=== PATIENT | female | born 1935 | race Caucasian/White ===

== ENCOUNTER → 2017-05-30 | Outpatient (CLI) | payer OTHER, BC ==
[~2017-05-30] MED LIST: IOPAMIDOL (ISOVUE-300) 100 ML BTL ONE
== END ==
LOC: CIMAGING 09:22
PROVIDERS: ATTEND Physician Assistant
DX: K74.69 Other cirrhosis of liver (principal); M48.061 Spinal stenosis, lumbar region without neurogenic claudication
CPT/HCPCS: 74178; Q9967

== ENCOUNTER → 2017-11-06 | Outpatient (CLI) | payer OTHER, BC | LOC: FCPNEURO 20:00 | PROVIDERS: ATTEND Internal Medicine Sleep Medicine | DX: G47.33 Obstructive sleep apnea (adult) (pediatric) (principal) ==

== ENCOUNTER 2018-04-23 15:08 | Emergency (ER) | payer OTHER, BC ==
[2018-04-23] MEDS ORDERED: NS 1,000 ML IV ONE (15:45)
[2018-04-23] MEDS ORDERED: ONDANSETRON 4 MG/2 ML VIAL IVP ONE ×2 (15:45→17:56)
--- NOTE | 2018-04-23 15:47 | EDPHY ---
H & P Stated Complaint: abdominal pain,nausea,weakness for 1 week Time Seen by Provider: 04/23/18 15:11 HPI/ROS: Chief Complaint: Nausea, abdominal pain HPI: 82-year-old woman with a history of chronic abdominal pain and cirrhosis is presenting with 1 week of nausea, decreased oral intake and abdominal pain. 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 She has had decreased oral intake for the last 2 days. She was recently discharged from [facility] on the 26 of March with a small-bowel obstruction which was treated medically. She has not had any vomiting. She has been having alternating diarrhea with constipation. Does not remember her last bowel movement. No fevers or chills. No cough. During her last admission she was switched from warfarin test Eliquis. Her pain doctors been taking her off of chronic narcotic medications which she takes for osteoporosis is and other chronic pain. ROS: 10 systems were reviewed and were negative except those elements noted in the HPI. PMH: Atrial fibrillation, anticoagulation on Eliquis, COPD, CHF, opioid dependence, cirrhosis, sleep apnea, chronic nausea Social History: No smoking, no alcohol, no recreational drug use Family History: non-contributory Physical Exam: Gen: Awake, Alert, No Distress HEENT: Nose: no rhinorrhea Eyes: PERRLA, EOMI Mouth: Very dry mucosa Neck: Supple, no JVD Chest: nontender, lungs clear to auscultation Heart: S1, S2 normal, no murmur Abd: Soft, hypoactive bowel sounds, diffuse tenderness, no guarding Back: no CVA tenderness, no midline tenderness Ext: no edema, non-tender Skin: no rash Neuro: CN II-XII intact, Sensation grossly intact, Strength 5/5 in bilateral upper and lower extremities - Personal History Current Tetanus Diphtheria and Acellular Pertussis (TDAP): Yes - Medical/Surgical History Hx Asthma: No Hx Chronic Respiratory Disease: Yes Hx Diabetes: No Hx Cardiac Disease: Yes Hx Renal Disease: No Hx Cirrhosis: Yes Hx Alcoholism: No Hx HIV/AIDS: No Hx Splenectomy or Spleen Trauma: No Other PMH: hypertension,ascites,COPD,cirrhosis of the liver,SBO,AFIB,CHF,sleep apnea,shahram,appy - Social History Smoking Status: Former smoker Constitutional: Initial Vital Signs Temperature (C) 37.1 C 10/10/18 15:21 Heart Rate 65 04/23/18 15:21 Respiratory Rate 14 04/23/18 15:21 Blood Pressure 184/83 H 04/23/18 15:21 O2 Sat (%) 96 04/23/18 15:21 O2 Delivery Mode Room Air Allergies/Adverse Reactions: No Known Allergies Allergy (Unverified 04/23/18 15:20) Home Medications: Medication Instructions Recorded Atorvastatin Calcium 04/23/18 Benadryl 04/23/18 Metoprolol Succinate 04/23/18 Miralax 17 gm (*) 04/23/18 Phenergan 12.5mg tab 04/23/18 Proair Hfa 04/23/18 Protonix 04/23/18 Singulair 04/23/18 morphINE IR 04/23/18 Medical Decision Making - Diagnostics Imaging Results: Imaging Impressions Abdomen CT 04/23/18 16:03 Impression: No evidence for recurrent bowel obstruction in this patient with cirrhosis. No source for abdominal pain identified. Results called to Dr. Norris Granda at 5:06 PM. General information for patients regarding this examination can be found at [email or web address]. If you have questions or comments about this report, please contact me at (hospital) or [phone] (cell). ED Course/Re-evaluation: Patient's laboratory evaluations are unremarkable. She is quite dehydrated clinically. CT scan of her abdomen pelvis is negative. No evidence of bowel obstruction. Patient is continuing to complain of fatigue and nausea. Her abdominal pain is improved. Plan will be for transfer door continued hydration and symptomatic control. Patient is requesting go to [facility] because that is where she has been treated in the past. I have paged the hospitalist. Patient has been accepted at [facility] by Dr. Lucio. I have completed the EMT A LA. - Data Points Laboratory Results: 04/23/18 16:06 POC Sodium 134 mEq/L L mEq/L (135-145) POC Potassium 4.6 mEq/L mEq/L (3.3-5.0) POC Chloride 109.0 mEq/L mEq/L (97-110) POC Total CO2 27 mEq/L mEq/L (22-31) POC BUN 8 mg/dL mg/dL (7-23) POC Creatinine 0.8 mg/dL mg/dL (0.6-1.0) POC Glucose 109 mg/dL H mg/dL (70-100) POC Calcium 9.9 mg/dL mg/dL (8.5-10.4) POC Total Bilirubin 0.5 mg/dL mg/dL (0.1-1.4) POC AST 26 IU/L IU/L (14-46) POC ALT 18 IU/L IU/L (9-52) POC Alk Phosphatase 84 IU/L IU/L (38-126) POC Total Protein 6.9 g/dL g/dL (6.3-8.2) POC Albumin 3.9 g/dL g/dL (3.5-5.0) Medications Given: Discontinued Medications Sodium Chloride (Ns) 1,000 mls @ 0 mls/hr IV ONCE ONE; Wide Open PRN Reason: Protocol Stop: 04/23/18 15:46 Last Admin: 04/23/18 15:59 Dose: 1,000 mls Ondansetron HCl (Zofran) 4 mg IVP EDNOW ONE Stop: 04/23/18 15:46 Last Admin: 04/23/18 16:10 Dose: 4 mg Point of Care Test Results: CBC CBC Collection Date 04/23/18 CBC Collection Date 04/23/18 CBC Collection Time 15:50 CBC Collection Time 15:50 WBC 5.5 WBC 5.5 RBC 3.80 RBC 3.80 HGB 12.1 HGB 12.1 HCT 36 HCT 36 PLT 127 PLT 127 Neut # 4.4 Neut # 4.4 Neut 79.7 Neut 79.7 LYMPH # 0.9 LYMPH # 0.9 LYMPH 15.9 LYMPH 15.9 Other WBC # 0.2 Other WBC # 0.2 Other WBC 4.4 Other WBC 4.4 MCV 94.7 MCV 94.7 Chemistry 04/23/18 16:06 POC Sodium 134 mEq/L L mEq/L (135-145) POC Potassium 4.6 mEq/L mEq/L (3.3-5.0) POC Chloride 109.0 mEq/L mEq/L (97-110) POC Total CO2 27 mEq/L mEq/L (22-31) POC BUN 8 mg/dL mg/dL (7-23) POC Creatinine 0.8 mg/dL mg/dL (0.6-1.0) POC Glucose 109 mg/dL H mg/dL (70-100) POC Calcium 9.9 mg/dL mg/dL (8.5-10.4) POC Total Bilirubin 0.5 mg/dL mg/dL (0.1-1.4) POC AST 26 IU/L IU/L (14-46) POC ALT 18 IU/L IU/L (9-52) POC Alk Phosphatase 84 IU/L IU/L (38-126) POC Total Protein 6.9 g/dL g/dL (6.3-8.2) POC Albumin 3.9 g/dL g/dL (3.5-5.0) Urine Dip Collection Date 04/23/18 Collection Time 15:45 Specific [place] (1.002-1.030) 1.015 PH (5.0-7.5) 7.5 Leukocytes (Negative) Negative Nitrites (Negative) Negative Protein (Negative) Negative Glucose (Negative) Negative Ketones (Negative) Negative Urobilnogen (0.2-1.0 EU) 0.2 Bilirubin (Negative) Negative Blood (Negative) 1+ Departure - Departure Disposition: [facility] Clinical Impression: Dehydration, Nausea, Abdominal pain Condition: Fair Referrals: Mariaelena Daniels DO [Primary Care Provider] - As per Instructions
[2018-04-23] MEDS ORDERED: IOPAMIDOL (ISOVUE-300) 100 ML BTL ONE (16:12)
[2018-04-23] MEDS ORDERED: ONDANSETRON 4 MG/2 ML VIAL ONE (17:54)
[2018-04-23 18:50] VITALS: BP 146/92
== END 2018-04-23 20:10 | disposition short-term general hospital (02) ==
LOC: CED 15:08
DX: E86.0 Dehydration (principal); R10.9 Unspecified abdominal pain; R11.0 Nausea
CPT/HCPCS: 74177; 96374; 96376; 99285; J2405; Q9967; 80053-PO